=== PATIENT | female | born 1935 | race Caucasian/White ===

== ENCOUNTER 2023-03-17 03:48 | Inpatient (IN) | payer MEDICARE, MEDICAID, SELFPAY ==
[2023-03-17] VITALS (16 sets, daily range): BP systolic 117–157; BP diastolic 40–96; PULSE 69–80; RESP 16–35; TEMP 36.4–37.7; O2SAT 91–97; BMI 40.7; BMI 38.2
[2023-03-17 03:52] LABS: ABG Base Excess -2.5 mmol/L (-2.4-2.3); ABG HCO3 24.5 mmhg (22.0-26.0); ABG Oxygen Saturation 98 % (90-100); ABG PH 7.26 mmol/L (7.35-7.45); ABG TCO2 26.2 mmhg (23-27)
--- NOTE | 2023-03-17 03:52 | ECG_ITS ---
APPROVED REPORT Exam: Resting ECG HR:70 bpm ECG Measurements Heart Rate 70 AXES QRSd 120 QRS 181 QT 486 T 171 QTc 506 Conclusion ELECTRONIC VENTRICULAR PACEMAKER ABNORMAL RHYTHM ECG UNCONFIRMED REPORT Electronically signed by : Jett Fried MD 03/17/2023 16:17:38
[2023-03-17 03:53] LABS: Allen's Test Acceptable; Source Right Radial
[2023-03-17 03:56] LABS: ABG PCO2 55.8 mmhg (35.0-45.0); Oxygen 4LPM %
--- NOTE | 2023-03-17 04:03 | XR_ITS ---
PROCEDURE INFORMATION: Exam: XR Chest Exam date and time: 03/17/2023 4:12 AM Age: 87 years old Clinical indication: Shortness of breath; Additional info: SOA TECHNIQUE: Imaging protocol: Radiologic exam of the chest. Views: 1 view. COMPARISON: No relevant prior studies available. FINDINGS: Lungs: Bibasilar atelectasis. Hypoinflation. Pleural spaces: Unremarkable. No pleural effusion. No pneumothorax. Heart/Mediastinum: Cardiomegaly. Bones/joints: Unremarkable. IMPRESSION: Cardiomegaly, bibasilar atelectasis and hypoinflation.
[2023-03-17 04:23] LABS: Coronavirus 19, PCR Not Detected (NotDetected); Influenza A, PCR Not Detected (NotDetected); Influenza B, PCR Not Detected (NotDetected)
[2023-03-17 04:28] LABS: Basophils % 0.2 % (0.1-2.0); Eosinophils % 0.1 % (0.1-12.0); Hematocrit 46.8 % (37.0-47.0); Hemoglobin 14.9 g/dL (12.2-16.2); Lymphocytes # 1.7 K/mm3 (0.7-4.5); Lymphocytes % 13.3 % (10-50); Mean Corpuscular HGB Conc 31.8 g/dL (31.8-35.4); Mean Corpuscular Volume 97.4 fl (81-99); Mean Platelet Volume 8.4 fl (7.4-10.4); Monocytes # 0.7 K/mm3 (0.1-1.0); Monocytes % 5.6 % (1.7-9.3); Neutrophils # 10.2 K/mm3 (1.8-7.8); Neutrophils % 80.8 % (37.0-80.0); Platelet Count 244 K/mm3 (142-424); Red Cell Distribution Width 14.2 % (11.5-17.5); White Blood Count 12.6 K/mm3 (4.8-10.8)
--- NOTE | 2023-03-17 04:38 | HMH.EDSOB ---
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 by RN): 87 yo female presents with CC of respiratory distress . According to EMS, patient is inside a [facility] person room at a [facility] where the other residents are COVID +. Patient is alert to self, but obviously requiring additional oxygen support to keep VSS. Right lungs diminished sounds noted. No obvious pedal edema present. No obvious ascites. History of Present Illness pt sent from [facility] for sob and wheezing over the last few days worse tonight - no chest pain MD Complaint: shortness of breath and cough Onset (ago): day(s) Severity: moderate Consistency/Duration: constant Relieving factors: oxygen and upright position Known history of: COPD Associated symptoms: cough and wheezing Treatment prior to arrival: oxygen and bronchodilator Related Data Home oxygen amount: none Home Medications Medication Instructions Recorded Confirmed albuterol sulfate 0.63 mg/3 mL 0.63 mg inhalation Q4H PRN soa 03/17/23 03/17/23 solution for nebulization atorvastatin 40 mg tablet 40 mg PO DAILY Cholesterol 03/17/23 03/17/23 carvedilol 3.125 mg tablet 3.125 mg PO BID htn 03/17/23 03/17/23 citalopram 10 mg tablet (Celexa) 10 mg PO DAILY Depression 03/17/23 03/17/23 rivaroxaban 20 mg tablet (Xarelto) 20 mg PO DAILY anticoag 03/17/23 03/17/23 Allergies Allergy/AdvReac Type Severity Reaction Status Date / Time nitrofurantoin Allergy Mild Verified 03/17/23 04:01 [From Macrobid] lisinopril AdvReac Intermediate Verified 03/17/23 04:01 Sulfa (Sulfonamide AdvReac Intermediate Verified 03/17/23 04:01 Antibiotics) sulindac AdvReac Intermediate Verified 03/17/23 04:01 Thiazides AdvReac Intermediate Verified 03/17/23 04:01 tramadol AdvReac Intermediate Verified 03/17/23 04:01 [facility] Disclaimer: The information contained in this section may have been updated after the patient was seen, as this information can be updated by other users. Social History Smoking Status: Never smoker alcohol intake: never current occupational status: retired Travel in the last 8 weeks: None ROS Obtained: Yes All systems reviewed & no additional complaints except as documented Physical Exam General General appearance: alert Head Head exam: normocephalic Eye Eye exam: Present other (chronic changes ) ENT ENT exam: Present mucous membranes moist Neck Neck exam: Present trachea midline Respiratory Respiratory exam: Present wheezes and other (dec bs bilat ); Absent respiratory distress Cardiovascular Cardiovascular exam: Present regular rate, systolic murmur and +S4 Abdominal Exam Abdominal exam: Present soft; Absent tenderness Extremities Exam Extremities exam: Present edema Neurological Exam Neurological exam: Present alert and CN II-XII intact Skin Skin exam: Absent rash Medical Decision Making Medical Records Medical records reviewed: Yes I reviewed the patient's medical records. Ray Inquiry Pt receiving controlled substance: No Vital Signs: 03/17/23 03:48 03/17/23 03:45 03/17/23 04:00 Temperature 99.9 F H Temperature Source Rectal Pulse Rate 70 71 Pulse Rate [Right Brachial] 70 Respiratory Rate 26 H Blood Pressure 157/68 H 153/75 H Blood Pressure [Right Arm] 157/68 H Blood Pressure Mean [Right Arm] 97 Blood Pressure Source [Right Arm] Automatic Cuff Blood Pressure Position [Right Arm] Sitting 02 Sat by
[2023-03-17 04:39] LABS: Chloride 104 mmol/L (98-107); Potassium 4.6 mmoL/L (3.5-5.1); Sodium 143 mmol/L (136-145)
[2023-03-17 04:40] LABS: Lactic Acid 1.7 mmol/L (0.7-2.1)
[2023-03-17 04:42] LABS: Alanine Aminotransferase 154 U/L (12-78); Albumin/Globulin Ratio 1.1 (1.1-1.8); Alkaline Phosphatase 157 U/L (38-126); Anion Gap 18.6 mEq/L (5-15); Aspartate Amino Transferase 265 U/L (14-36); Bilirubin,Total 0.8 mg/dl (0.2-1.3); Blood Urea Nitrogen 26 mg/dl (7-17); Calcium 9.3 mg/dl (8.4-10.2); Carbon Dioxide 25 mmol/L (22.0-30.0); Creatinine Clearance Estimated 49 mL/min (50-200); Estimated Glomerular Filt Rate 39 ml/min (>60); GFR (African American) 47 ML/MIN (>60); Globulin 3.5 g/dL (1.3-3.2); Glucose 151 mg/dl (74-100); Total Protein,Serum 7.5 g/dl (6.3-8.2)
[2023-03-17 04:47] LABS: C-Reactive Protein 275.9 mg/L (0-4)
[2023-03-17 04:53] LABS: NT Pro Brain Natriuretic Pep. 15300 pg/mL (0-450)
[2023-03-17 04:57] LABS: Troponin I 0.81 ng/ml (0.00-0.034)
[2023-03-17 04:59] LABS: Erythrocyte Sedimentation Rate 39 mm/hr (0-30)
--- NOTE | 2023-03-17 05:03 | PC.NURSE ---
paged dr gomez (oncall for dr neal)
--- NOTE | 2023-03-17 05:11 | PC.NURSE ---
dr gomez returned call. plan to admit
--- NOTE | 2023-03-17 06:05 | PC.NURSE ---
RESPIRATORY CARE NOTE: NT SXN PT AT THIS TIME. MODERATE AMOUNT OF THICK GREEN/TEAGUE SPUTUM OBTAINED. SPECIMEN SENT TO LAB.
--- NOTE | 2023-03-17 06:07 | PC.NURSE ---
sputum collected by resp therapy. sent to lab
[2023-03-17 07:17] LABS: Troponin I 0.61 ng/ml (0.00-0.034)
--- NOTE | 2023-03-17 07:35 | P.CONPHA_ITS ---
Pharmacy Intervention Comments: HOME MEDICATION LIST VERIFIED USING LIST FROM [facility]
--- NOTE | 2023-03-17 07:35 | HMH.PHAINT1 ---
Pharmacy Intervention Comments: HOME MEDICATION LIST VERIFIED USING LIST FROM [facility]
--- NOTE | 2023-03-17 07:35 | PC.NURSE ---
report called to danuta lucas
--- NOTE | 2023-03-17 07:51 | PC.NURSE ---
arrived by stretcher from ED
--- NOTE | 2023-03-17 09:01 | SW/DCPLANNER ---
Addendum entered by Jahaira Pennington 03/20/23 13:02: Discharge information has been faxed to Tony chong/ [facility]. Original Note: Patient currently resides at [facility] level of care per Tony. I will continue to follow up with Tony at [facility]. Discharge date is unknown at this time.
--- NOTE | 2023-03-17 09:32 | EXP.CARD.CON ---
History of Present Illness History of Present Illness Consult date: 03/17/23 Requesting physician: Ed Collier Consult reason: shortness of breath Chief complaint: SOA History of present illness: This is an 87-year-old white female who presented to the emergency department with shortness of breath. The patient was [facility] to have [facility] at the [facility] where [facility] so the patient was brought into the emergency department. The [facility] in a [facility] room at the [facility] with other residents who are COVID-positive. She has been short of breath for approximately 3 days. She does have a cough that the patient reports was productive initially but over the last few days she has not been able to cough anything up because she is too weak. She states that her cough has been severe. She denies any chest pain or pressure. She denies any lower extremity edema. She denies having any fever or chills. She denies any nausea, vomiting, diarrhea. The patient's daughters are at her bedside and do give a lot of her history as well. 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 They report that she has a home device and her transmissions are sent in regularly and then she goes to see the resident service coordinator approximately every 6 months. They deny her having a history of an IN or coronary artery disease. [facility] Disclaimer: The information contained in this section may have been updated after the patient was seen, as this information can be updated by other users. Medical History (Updated 03/17/23 @ 09:39 by Connie Wood APRN) Acute exacerbation of chronic obstructive airways disease Acute respiratory failure CAP (community acquired pneumonia) CO2 narcosis Congestive heart failure Hyperlipidemia Non-ST elevated myocardial infarction (non-STEMI) Paroxysmal atrial fibrillation Social History (Updated 03/17/23 @ 06:53 by Ed Collier (SHASHANK)MD) Smoking Status: Never smoker alcohol intake: never current occupational status: retired Travel in the last 8 weeks: None Review of Systems Review of Systems Review of systems:: pertinent systems reviewed and negative unless documented below Constitutional Constitutional: Reports system reviewed and no additional complaints, except as documented, Reports fatigue, Denies fever(s), Reports poor appetite, Reports lethargy and Reports weakness Eyes Eyes: Reports system reviewed and no additional complaints, except as documented ENT Ears, Nose, Mouth, and Throat: Reports system reviewed and no additional complaints, except as documented *Cardiovascular Cardiovascular: Reports system reviewed and no additional complaints, except as documented, Denies chest pain, Reports dyspnea, Reports dyspnea on exertion, Denies leg edema, Reports orthopnea and Denies palpitations *Respiratory Respiratory: Reports system reviewed and no additional complaints, except as documented, Reports chest congestion, Reports cough, Reports dyspnea, Reports dyspnea on exertion, Reports excessive phlegm production, Denies hemoptysis and Reports wheezing *Gastrointestinal Gastrointestinal: Reports system reviewed and no additional complaints, except as documented *Genitourinary Genitourinary: Reports system reviewed and no additional complaints, except as documented *Musculoskeletal Musculoskeletal: Reports system reviewed and no additional complaints, except as documented Integumentary/Breasts Skin/Breast: Reports system reviewed and no additional complaints, except as documented *Neurologic Neurologic: Reports system reviewed and no additional complaints, except as documented and Reports weakness Psychiatric Psychiatric: Reports system reviewed and no additional complaints, except as documented Endocrine Endocrine: Reports system reviewed and no additional complaints, except as documented, Reports fatigue and Denies palpitations Hematologic
--- NOTE | 2023-03-17 09:34 | EXP.PULM.CON ---
History of Present Illness History of present illness: Ms. Jordan is a 87-year-old female care home resident presented to the hospital with worsening respiratory distress with fatigue and altered mentation needing new oxygen requirements and pulmonary was called for further evaluation [facility] Disclaimer: The information contained in this section may have been updated after the patient was seen, as this information can be updated by other users. Medical History (Updated 03/17/23 @ 11:30 by Luis Araujo MD) Acute exacerbation of chronic obstructive airways disease Acute respiratory failure Acute respiratory failure with hypoxia CAP (community acquired pneumonia) CO2 narcosis Congestive heart failure FHx: total knee replacement Hyperlipidemia Non-ST elevated myocardial infarction (non-STEMI) Paroxysmal atrial fibrillation Pneumonia Surgical History (Updated 03/17/23 @ 11:01 by Jacqueline Guevara, ARTHUR) History of hip replacement Social History (Updated 03/17/23 @ 11:02 by Jacqueline Guevara RN) Smoking Status: Never smoker alcohol intake: never current occupational status: retired Travel in the last 8 weeks: None Review of Systems Review of Systems Review of systems (narrative): Limited review of systems given patient's mentation Constitutional Constitutional: Reports anorexia, Reports body ache(s) and Reports fatigue *Cardiovascular Cardiovascular: Reports dyspnea, Reports dyspnea on exertion and Reports orthopnea *Respiratory Respiratory: Reports chest congestion, Reports cough, Reports dyspnea, Reports dyspnea on exertion and Denies excessive phlegm production *Gastrointestinal Gastrointestinal: Denies abdominal pain, Denies belching and Denies cramping *Musculoskeletal Musculoskeletal: Reports back pain, Reports myalgias and Reports other (No small joint swelling or Pain) Endocrine Endocrine: Reports fatigue Pulmonology Exam Inpatient Vital signs and Labs for Last 24 Hours: Temp Pulse Resp BP Pulse Ox 99.7 F H 70 20 148/80 H 91 L 03/17/23 07:39 03/17/23 07:39 03/17/23 07:39 03/17/23 07:39 03/17/23 07:39 Laboratory Results - last 24 hr 03/17/23 03:48: WBC 12.6 H, RBC 4.80, Hgb 14.9, Hct 46.8, MCV 97.4, MCH 31.0, MCHC 31.8, RDW 14.2, Plt Count 244, MPV 8.4, Neut % (Auto) 80.8 H, Lymph % (Auto) 13.3, [place] % (Auto) 5.6, Eos % (Auto) 0.1, Baso % (Auto) 0.2, Neut # (Auto) 10.2 H, Lymph # (Auto) 1.7, [place] # (Auto) 0.7, Eos # (Auto) 0.0, Baso # (Auto) 0.0 03/17/23 03:48: Sodium 143, Potassium 4.6, Chloride 104, Carbon Dioxide 25, Anion Gap 18.6 H, BUN 26 H, Creatinine 1.30 H, Estimated Creat Clear 49, Estimated GFR 39 L, Est GFR ( Amer) 47 L, Glucose 151 H, Calcium 9.3, Total Bilirubin 0.8, AST 265 H, ALT 154 H, Alkaline Phosphatase 157 H, Troponin I 0.81 H, Total Protein 7.5, Albumin 4.0, Globulin 3.5 H, Albumin/Globulin Ratio 1.1 03/17/23 03:48: C-Reactive Protein 275.9 H, NT-Pro-B Natriuret Pep 42712 H 03/17/23 03:48: SARS-CoV-2 (PCR) Not detected, Influenza A Untype (PCR) Not detected, Influenza Type B (PCR) Not detected 03/17/23 03:48: ESR 39 H 03/17/23 03:48: Lactate 1.7 03/17/23 03:51: Specimen Source Right radial, O2 % 4lpm, ABG pH 7.26 L, ABG pCO2 55.8 H, ABG pO2 108.0 H, ABG HCO3 24.5, ABG Total CO2 26.2, ABG O2 Saturation 98, ABG Base Excess -2.5 L, En Test Acceptable 03/17/23 06:35: Troponin I 0.61 H I & O for Labs for Last 24 Hours: Intake & Output 03/14/23 03/15/23 03/16/23 03/17/23 23:59 23:59 23:59 23:59 Intake Total 0 / 0 Output Total 0 / 0 Balance 0 / 0 Weight 202 lb 3 oz Constitutional: Present severe distress Head: Present normocephalic and atraumatic ENT: Present normal exam, normal oropharynx and mucous membranes moist Neck: Present normal inspection and full ROM Respiratory: Present respiratory distress, rhonchi, crackles, diminished air movement and able to speak in complete sentences; Absent wheezes Cardiac: Present Tachycardia and radial pulses
--- NOTE | 2023-03-17 09:49 | PC.NURSE ---
COURTESY TECH NOTE; ROUNDED ON PT 0915, ASSISTED PRIMARY TECH WITH Q2H TURN, RIGHT SIDE LYING, ACTIVITY TOLERATED WELL. CALL LIGHT WITHIN REACH, NO FURTHER REQUESTS AT THIS TIME Estevan STUBBS, SRNA
[2023-03-17 10:21] LABS: ABG Base Excess -2.2 mmol/L (-2.4-2.3); ABG HCO3 22.7 mmhg (22.0-26.0); ABG Oxygen Saturation 94 % (90-100); ABG PCO2 37.7 mmhg (35.0-45.0); ABG PO2 70.4 mmhg (80-100); ABG TCO2 23.8 mmhg (23-27)
[2023-03-17 10:22] LABS: Allen's Test ACCEPTABLE; Oxygen 50% %; Source L RADIAL
[2023-03-17 11:02] LABS: Troponin I 0.48 ng/ml (0.00-0.034)
--- NOTE | 2023-03-17 11:05 | PC.NURSE ---
Dr. Fried's office notified of critical third troponin result. Patient coughing while drinking water, speech eval ordered per protocol
--- NOTE | 2023-03-17 14:28 | PC.NURSE ---
COURTESY TECH NOTE; ROUNDED ON PT 1210, PT REFUSED BATHING TWICE, TECH ASSISTED TO CHANGE PT BRIEF AND REPOSITION PT. MODERATE BOWEL MOVEMENT, TYPE 6. CALL LIGHT WITHIN REACH, NO FURTHER REQUESTS AT THIS TIME KE RUFF
--- NOTE | 2023-03-17 14:40 | HMH.SLDYSPHA ---
Speech & Language Evaluation Speech/Language Dysphagia Evaluation Start: 03/17/23 14:13 Freq: ONCE Status: Active Protocol: Document 03/17/23 14:14 BARRY (Rec: 03/17/23 14:40 [email or web address] [id number]) Dysphagia Assess/Goals/Plan Assessment Date of Evaluation: 03/17/23 Evaluation Type Initial Certification Assessment/Problems CSE completed at this date per MD order 2' concerns following coughing with water. Does Patient Qualify for Service No Qualify/Failure Comment Based on CSE results and clinical observations, swallowing and mastication appear to be WFL, no skilled speech therapy services are warranted at this time. Recommendations PHYSICIAN CERTIFICATION: The specified therapy services are required, authorized, and reviewed every 30 days. Diet Recommendations Normal Liquid Type Recommendations Normal/Thin SL Swallow Guidelines Alt bite w/sip thru meal, Standard Aspiration Prec. Dysphagia Swallow Precautions/Strategies Sitting Upright (90 deg),No Straw,Small Bites and Sips, Alternate Liquids/Solids Place Food on Either side of Mouth Plan Pt/Guardian verbally ack understanding Yes of dx/prognosis/goals G -code Required No Education Instructions provided Discussed CSE results, aspiration risks/precautions, and diet recommendations with pt and her two daughters, nursing, and care management all of which expressed understanding. Pt/Caregiver able to recall information Able to recall/restate Reinforcement needed No Speech & Language HPI History Present Illness Description of Patient Problem Ms. Gaby Jordan is a pleasant 87 year old female who presents at [facility] via EMS from senior living with complaints of shortness of breath/dyspnea and altered mental status. Per ER report, According to EMS, patient is inside a 4 person room at a senior living where the other residents are COVID +. Patient is alert to self, but obviously requiring additional oxygen support to keep VSS.
--- NOTE | 2023-03-17 17:12 | PC.NURSE ---
Patient weaned from Venti mask to 4LNC. VS stable. Patient pleasantly confused, alert to self, and cooperative. Voice hoarse. No pain reported. Lung sounds diminished.
[2023-03-18] VITALS (15 sets, daily range): BP systolic 117–146; BP diastolic 61–84; PULSE 70–90; RESP 16–20; TEMP 36.3–36.7; O2SAT 94–97; BMI 40.4
--- NOTE | 2023-03-18 01:24 | PC.NURSE ---
PATIENT RESTING IN BED AT THIS TIME . NO COMPLAINTS OF SOA/PAIN/DISCOMFORT. 02 ADJUSTED DOWN TO 2LNC PER R.T.V-PACED RHYTHM ON TELE. F/C TO BSD, URINE CLEAR YELLOW, VITAL SIGNS STABLE/AFEBRILE.
[2023-03-18 07:02] LABS: Basophils % 0.1 % (0.1-2.0); Eosinophils % 0.3 % (0.1-12.0); Hematocrit 41.6 % (37.0-47.0); Hemoglobin 13.4 g/dL (12.2-16.2); Lymphocytes # 0.9 K/mm3 (0.7-4.5); Lymphocytes % 6.6 % (10-50); Mean Corpuscular HGB Conc 32.1 g/dL (31.8-35.4); Mean Corpuscular Hemoglobin 30.8 pg (27.0-31.2); Mean Corpuscular Volume 95.8 fl (81-99); Mean Platelet Volume 8.3 fl (7.4-10.4); Monocytes # 0.5 K/mm3 (0.1-1.0); Monocytes % 3.9 % (1.7-9.3); Neutrophils # 11.8 K/mm3 (1.8-7.8); Neutrophils % 89.1 % (37.0-80.0); Platelet Count 238 K/mm3 (142-424); Red Blood Count 4.34 M/mm3 (4.20-5.40); Red Cell Distribution Width 14.3 % (11.5-17.5); White Blood Count 13.3 K/mm3 (4.8-10.8)
[2023-03-18 07:04] LABS: Chloride 107 mmol/L (98-107); Sodium 142 mmol/L (136-145)
[2023-03-18 07:05] LABS: MANUAL DIFFERENTIAL MANUAL DIFFERENTIAL (MANUAL DIFF)
[2023-03-18 07:07] LABS: Blood Urea Nitrogen 41 mg/dl (7-17); Calcium 8.8 mg/dl (8.4-10.2); Carbon Dioxide 25 mmol/L (22.0-30.0); Creatinine Clearance Estimated 54 mL/min (50-200); Estimated Glomerular Filt Rate 47 ml/min (>60); GFR (African American) 57 ML/MIN (>60); Glucose 138 mg/dl (74-100); Magnesium 2.5 mg/dl (1.6-2.3)
[2023-03-18 08:35] LABS: Anisocytosis 1+; Lymphocytes % 8 % (10-50); Macrocytosis 1+; Monocytes % 4 % (2-9); Neutrophils % 88 % (42-76); Platelet Estimate Normal; Total Cells Counted 100
--- NOTE | 2023-03-18 09:19 | EXP.ACUTE.PN ---
Subjective *Date: 03/18/23 *Time: 09:19 Interval history: Overall patient feels better, has eaten breakfast, is down to 2 L nasal cannula. ABG abnormalities resolved with antibiotic therapy and pulmonary toilet yesterday. Medical Exam Vital signs and Labs for Last 24 Hours: Vital Signs Temp Pulse Pulse Resp BP Pulse Ox 03/18/23 08:00 95 03/18/23 07:23 97.6 F 70 18 146/84 H 95 03/18/23 06:05 72 03/18/23 06:05 72 03/18/23 06:05 95 03/18/23 04:00 97.3 F L 70 20 128/71 95 03/18/23 00:01 90 03/18/23 00:49 95 03/18/23 00:48 70 03/18/23 00:48 70 03/18/23 00:00 98.1 F 70 20 117/61 97 03/17/23 20:00 80 03/17/23 20:00 95 03/17/23 20:00 98.4 F 70 19 117/40 L 95 03/17/23 19:27 69 03/17/23 19:27 72 03/17/23 19:26 95 03/17/23 16:00 70 03/17/23 12:00 70 03/17/23 15:16 98.1 F 70 16 145/96 H 95 03/17/23 13:08 78 03/17/23 13:08 76 03/17/23 11:02 97.5 F L 70 18 139/75 93 L Intake and Output 03/17/23 03/18/23 03/18/23 19:59 03:59 11:59 Intake Total 540 / 1605 540 / 1605 525 / 1605 Output Total 0 / 400 400 / 400 Balance 540 / 1205 540 / 1205 125 / 1205 Intake: Intake, Oral Amount 540 / 1080 240 / 1080 300 / 1080 Intake, Total IV Amount 300 / 525 225 / 525 0.9 % Sodium Chloride 1000ML 1, 300 / 525 225 / 525 000 ml @ 50 mls/hr IV .Q20H [facility] Rx#:[id number] Output: Output, Urine Amount 0 / 400 400 / 400 Other: Number of Unmeasured Voids 0 0 Number of Bowel Movements 1 1 Weight 202 lb 3.01 oz 214 lb 3.2 oz Patient Weight 03/18/23 11:59 Weight 214 lb 3.2 oz Laboratory Results - last 24 hr 03/17/23 10:19: Specimen Source L radial, O2 % 50%, ABG pH 7.40, ABG pCO2 37.7, ABG pO2 70.4 L, ABG HCO3 22.7, ABG Total CO2 23.8, ABG O2 Saturation 94, ABG Base Excess -2.2, En Test Acceptable 03/17/23 10:20: Troponin I 0.48 H 03/18/23 06:16: WBC 13.3 H, RBC 4.34, Hgb 13.4, Hct 41.6, MCV 95.8, MCH 30.8, MCHC 32.1, RDW 14.3, Plt Count 238, MPV 8.3, Neut % (Auto) 89.1 H, Lymph % (Auto) 6.6 L, [place] % (Auto) 3.9, Eos % (Auto) 0.3, Baso % (Auto) 0.1, Neut # (Auto) 11.8 H, Lymph # (Auto) 0.9, [place] # (Auto) 0.5, Eos # (Auto) 0.0, Baso # (Auto) 0.0, Total Counted 100, Neutrophils % (Manual) 88 H, Lymphocytes % (Manual) 8 L, Monocytes % (Manual) 4, Platelet Estimate Normal, Anisocytosis 1+, Macrocytosis 1+ 03/18/23 06:16: Sodium 142, Potassium 4.0, Chloride 107, Carbon Dioxide 25, Anion Gap 14.0, BUN 41 H D, Creatinine 1.10 H, Estimated Creat Clear 54, Estimated GFR 47 L, Est GFR ( Amer) 57 L D, Glucose 138 H, Calcium 8.8, Magnesium 2.5 H I & O for Labs for Last 24 Hours: Intake & Output 03/15/23 03/16/23 03/17/23 03/18/23 11:59 11:59 11:59 11:59 Intake Total 0 / 0 1605 / 1605 Output Total 0 / 0 400 / 400 Balance 0 / 0 1205 / 1205 Weight 202 lb 3 oz 214 lb 3.2 oz Microbiology Reports for the Last 24 Hours: Microbiology 03/17/23 06:00 Sputum - Nasotracheal Suction Gram Stain - Final Respiratory: Present decreased breath sounds and CTA bilaterally; Absent rhonchi Assessment and Plan *Assessment and plan (1) Pneumonia: Status: Acute Category: Medical Code(s): J18.9 - Pneumonia, unspecified organism Plan Patient improving. Continue antibiotic therapy and supportive care. Probable transfer back to nursing tomorrow
--- NOTE | 2023-03-18 09:22 | EXP.HP ---
History of Present Illness *Admission Date: 03/17/23 *Reason for visit:: Respiratory distress, cough, fever *History of present illness: 87-year-old female, resident of [facility], brought to [facility] via EMS because of cough, congestion and lower sats, in the ER was admitted for further evaluation and antibiotic therapy for community-acquired pneumonia. In the ER patient was also noted to have elevated BNP levels and elevated troponin levels. [facility] Disclaimer: The information contained in this section may have been updated after the patient was seen, as this information can be updated by other users. Medical History (Updated 03/17/23 @ 11:30 by Luis Araujo MD) Acute exacerbation of chronic obstructive airways disease Acute respiratory failure Acute respiratory failure with hypoxia CAP (community acquired pneumonia) CO2 narcosis Congestive heart failure FHx: total knee replacement Hyperlipidemia Non-ST elevated myocardial infarction (non-STEMI) Paroxysmal atrial fibrillation Pneumonia Surgical History (Updated 03/17/23 @ 11:01 by Jacqueline Guevara RN) History of hip replacement Social History (Updated 03/17/23 @ 11:02 by Jacqueline Guevara RN) Smoking Status: Never smoker alcohol intake: never current occupational status: retired Travel in the last 8 weeks: None Review of Systems Review of Systems Review of systems:: unable to obtain Constitutional Constitutional: Reports weakness *Neurologic Neurologic: Reports system reviewed and no additional complaints, except as documented and Reports weakness Meds Home Medications and Allergies Home Medications Medication Instructions Recorded Confirmed Type albuterol sulfate 0.63 mg/3 mL 0.63 mg inhalation Q4HP PRN 03/17/23 03/17/23 History solution for nebulization Shortness Of Breath atorvastatin 40 mg tablet 40 mg PO DAILY Cholesterol 03/17/23 03/17/23 History carvedilol 3.125 mg tablet 3.125 mg PO BID High blood pressure 03/17/23 03/17/23 History citalopram 10 mg tablet (Celexa) 10 mg PO DAILY Depression 03/17/23 03/17/23 History rivaroxaban 20 mg tablet (Xarelto) 20 mg PO QPMWITHMEAL blood 03/17/23 03/17/23 History thinner/CAD New Prescriptions to Start Prescriptions: Allergies Allergy/AdvReac Type Severity Reaction Status Date / Time nitrofurantoin Allergy Mild Verified 03/17/23 04:01 [From Macrobid] lisinopril AdvReac Intermediate Verified 03/17/23 04:01 Sulfa (Sulfonamide AdvReac Intermediate Verified 03/17/23 04:01 Antibiotics) sulindac AdvReac Intermediate Verified 03/17/23 04:01 Thiazides AdvReac Intermediate Verified 03/17/23 04:01 tramadol AdvReac Intermediate Verified 03/17/23 04:01 Exam Data for Last 24 hours Vital signs and Labs for Last 24 Hours: Temp Pulse Resp BP Pulse Ox 97.6 F 70 18 146/84 H 95 03/18/23 07:23 03/18/23 07:23 03/18/23 07:23 03/18/23 07:23 03/18/23 08:00 Laboratory Results - last 24 hr 03/17/23 10:19: Specimen Source L radial, O2 % 50%, ABG pH 7.40, ABG pCO2 37.7, ABG pO2 70.4 L, ABG HCO3 22.7, ABG Total CO2 23.8, ABG O2 Saturation 94, ABG Base Excess -2.2, En Test Acceptable 03/17/23 10:20: Troponin I 0.48 H 03/18/23 06:16: WBC 13.3 H, RBC 4.34, Hgb 13.4, Hct 41.6, MCV 95.8, MCH 30.8, MCHC 32.1, RDW 14.3, Plt Count 238, MPV 8.3, Neut % (Auto) 89.1 H, Lymph % (Auto) 6.6 L, [place] % (Auto) 3.9, Eos % (Auto) 0.3, Baso % (Auto) 0.1, Neut # (Auto) 11.8 H, Lymph # (Auto) 0.9, [place] # (Auto) 0.5, Eos # (Auto) 0.0, Baso # (Auto) 0.0, Total Counted 100, Neutrophils % (Manual) 88 H, Lymphocytes % (Manual) 8 L, Monocytes % (Manual) 4, Platelet Estimate Normal, Anisocytosis 1+, Macrocytosis 1+ 03/18/23 06:16: Sodium 142, Potassium 4.0, Chloride 107, Carbon Dioxide 25, Anion Gap 14.0, BUN 41 H D, Creatinine 1.10 H, Estimated Creat Clear 54, Estimated GFR 47 L, Est GFR ( Amer) 57 L D, Glucose 138 H, Calcium 8.8, Magnesium 2.5 H I & O for Last 24 h
--- NOTE | 2023-03-18 16:06 | PC.NURSE ---
pt alert to self and where she is. pt's daughter to visit this shift. LS clear diminished t/o. abdomen soft, nontender, bs active. pt was medicated for nausea once per shift. pt has been sitting up in bed feeding herself today. pt does have periods of incontinent episodes. pt has attends in place but also is up to BSC with max assist. pt has scattered bruising t/o extremities. call light w/i reach.
[2023-03-19] VITALS: BP 140/70; PULSE 71; RESP 18; TEMP 36.8; O2SAT 92
[2023-03-19 04:00] VITALS: BP 152/72; PULSE 70; RESP 20; TEMP 36.4; O2SAT 92; BMI 40.4
[2023-03-19 06:29] VITALS: PULSE 71; PULSE 76; O2SAT 94
[2023-03-19 06:54] LABS: Basophils % 0.1 % (0.1-2.0); Eosinophils % 0.3 % (0.1-12.0); Hematocrit 41.3 % (37.0-47.0); Hemoglobin 13.5 g/dL (12.2-16.2); Lymphocytes % 7.6 % (10-50); Mean Corpuscular HGB Conc 32.6 g/dL (31.8-35.4); Mean Corpuscular Hemoglobin 31.1 pg (27.0-31.2); Mean Corpuscular Volume 95.5 fl (81-99); Mean Platelet Volume 8.3 fl (7.4-10.4); Monocytes # 0.6 K/mm3 (0.1-1.0); Monocytes % 4.9 % (1.7-9.3); Neutrophils # 11.1 K/mm3 (1.8-7.8); Neutrophils % 87.3 % (37.0-80.0); Platelet Count 245 K/mm3 (142-424); Red Blood Count 4.33 M/mm3 (4.20-5.40); Red Cell Distribution Width 14.5 % (11.5-17.5); White Blood Count 12.7 K/mm3 (4.8-10.8)
[2023-03-19 07:02] LABS: Chloride 107 mmol/L (98-107); Potassium 3.9 mmoL/L (3.5-5.1); Sodium 141 mmol/L (136-145)
[2023-03-19 07:03] LABS: MANUAL DIFFERENTIAL MANUAL DIFFERENTIAL (MANUAL DIFF)
[2023-03-19 07:05] LABS: Anion Gap 14.9 mEq/L (5-15); Blood Urea Nitrogen 36 mg/dl (7-17); Calcium 8.5 mg/dl (8.4-10.2); Carbon Dioxide 23 mmol/L (22.0-30.0); Creatinine Clearance Estimated 60 mL/min (50-200); Estimated Glomerular Filt Rate 59 ml/min (>60); GFR (African American) 71 ML/MIN (>60); Glucose 110 mg/dl (74-100)
[2023-03-19 07:27] VITALS: BP 158/69; PULSE 70; RESP 18; TEMP 36.4; O2SAT 94
[2023-03-19 08:17] LABS: Lymphocytes % 8 % (10-50); Neutrophils % 92 % (42-76); Total Cells Counted 100
[2023-03-19 08:18] LABS: Platelet Estimate Normal; RBC Morphology Normal
--- NOTE | 2023-03-19 08:50 | EXP.DC.SUM ---
General Admission date:: 03/17/23 Discharge date: 03/19/23 HPI HPI HPI: 87-year-old female, resident of [facility], brought to [facility] via EMS because of cough, congestion and lower sats, in the ER was admitted for further evaluation and antibiotic therapy for community-acquired pneumonia. In the ER patient was also noted to have elevated BNP levels and elevated troponin levels. Hospital Course Hospital Course Hospital Course: Patient was admitted. The ER obtained cardiology consultation and cardiology consultation obtained pulmonary consultation, neither of which recommended any change in management or invasive testing. The patient improved with IV antibiotics and oxygen therapy and oxygen requirements diminished and she was able to be weaned down to 2 L nasal cannula. Blood cultures were negative at the time of discharge, we will continue to monitor these. White count normalized and electrolytes also normalized with improvement of her SAURABH. Oral intake yesterday and this morning was good. Plan to transfer back to [facility], she will finish out p.o. antibiotics for what appears to be community-acquired pneumonia with COPD exacerbation. Echocardiogram final report is still pending. I will do diuretic therapy as indicated below and she will need a CBC and BMP in 48 hours, which will be on Monday, March 21 at the [facility] facility. Please note she will maintain her DNR status. Exam Data for Last 24 hours Vital signs and Labs for Last 24 Hours: Temp Pulse Resp BP Pulse Ox FiO2 97.5 F L 70 18 158/69 H 94 L 28 03/19/23 07:27 03/19/23 07:27 03/19/23 07:27 03/19/23 07:27 03/19/23 07:27 03/18/23 18:33 Laboratory Results - last 24 hr 03/19/23 06:21: WBC 12.7 H, RBC 4.33, Hgb 13.5, Hct 41.3, MCV 95.5, MCH 31.1, MCHC 32.6, RDW 14.5, Plt Count 245, MPV 8.3, Neut % (Auto) 87.3 H, Lymph % (Auto) 7.6 L, [place] % (Auto) 4.9, Eos % (Auto) 0.3, Baso % (Auto) 0.1, Neut # (Auto) 11.1 H, Lymph # (Auto) 1.0, [place] # (Auto) 0.6, Eos # (Auto) 0.0, Baso # (Auto) 0.0, Total Counted 100, Neutrophils % (Manual) 92 H, Lymphocytes % (Manual) 8 L, Platelet Estimate Normal, RBC Morphology Normal 03/19/23 06:21: Sodium 141, Potassium 3.9, Chloride 107, Carbon Dioxide 23, Anion Gap 14.9, BUN 36 H, Creatinine 0.90, Estimated Creat Clear 60, Estimated GFR 59, Est GFR ( Amer) 71 D, Glucose 110 H, Calcium 8.5 I & O for Last 24 hours: Intake & Output 03/16/23 03/17/23 03/18/23 03/19/23 11:59 11:59 11:59 11:59 Intake Total 0 / 0 1605 / 1605 1606 / 1606 Output Total 0 / 0 400 / 400 0 / 0 Balance 0 / 0 1205 / 1205 1606 / 1606 Weight 202 lb 3 oz 214 lb 3.2 oz 214 lb 3.183 oz Microbiology Reports for the Last 24 Hours: Microbiology 03/17/23 06:00 Sputum - Nasotracheal Suction Gram Stain - Final 03/17/23 06:00 Sputum - Nasotracheal Suction Sputum Culture - Preliminary 03/17/23 03:48 Blood Blood Culture - Preliminary NO GROWTH AFTER 48 HOURS 03/17/23 03:48 Blood Blood Culture - Preliminary NO GROWTH AFTER 48 HOURS Constitutional Constitutional: no acute distress, obese and chronically ill appearing *Routine HEENT Exam Head: Present normocephalic and atraumatic ENT: Present mucous membranes moist *Routine Neck Exam Neck: Present supple, full ROM and normal carotid upstroke; Absent JVD, carotid bruit or lymphadenopathy *Routine Respiratory Exam Respiratory: Present decreased breath sounds, rales, rhonchi and wheezes *Routine Cardiovascular Exam Cardiovascular: Present RRR, Normal S1 and Normal S2; Absent murmur or gallop *Routine Abdominal Exam Abdominal: Present soft and normoactive bowel sounds; Absent tenderness, distended or organomegaly *Routine Extremities Exam Extremities: Present full ROM, pulses intact and normal capillary refill; Absent cyanosis, clubbing or edema *Routine Skin Exam Skin: Present intac
--- NOTE | 2023-03-19 09:38 | PC.NURSE ---
report called to Nicolas @ [facility]. Daughter Janay notified of pt discahrge and transport.
--- NOTE | 2023-03-19 11:23 | PC.NURSE ---
pt has been discharged form the facility. all belongings sent with her. 2lnc. Daughter Janay notified of pt leaving the facility
== END 2023-03-19 11:23 | DRG 193 ==
LOC: ER 04:25 → 2ND 06:29
PROVIDERS: Admitting Provider Family Medicine; Emergency Provider Emergency Medicine; PCP Internal Medicine Adolescent Medicine; Visit Provider Internal Medicine Adolescent Medicine
DX: J18.9 Pneumonia, unspecified organism (principal); I21.A1 Myocardial infarction type 2; J96.00 Acute respiratory failure, unspecified whether with hypoxia or hypercapnia; E87.20 Acidosis, unspecified; J44.0 Chronic obstructive pulmonary disease with (acute) lower respiratory infection; I11.0 Hypertensive heart disease with heart failure; I50.9 Heart failure, unspecified; Z79.01 Long term (current) use of anticoagulants; E78.5 Hyperlipidemia, unspecified; I48.0 Paroxysmal atrial fibrillation; I25.2 Old myocardial infarction; Z95.0 Presence of cardiac pacemaker
CPT/HCPCS: 36415; 71045; 80048; 80053; 82803; 83605; 83735; 83880; 84484; 85007; 85025; 85651; 86140; 87040; 87070; 87205; 87636; 92610; 93005; 93306; 94640; 94760; 94761; 99285; C9803; J0456; J0696; J2405; U0003; U0005